=== PATIENT | female | born 1950 | race Caucasian/White ===

== ENCOUNTER 2017-10-23 09:20 | Emergency (ER) | payer MEDICARE, OTHER, SELFPAY ==
[2017-10-23 09:22] VITALS: BP 193/113; PULSE 83; RESP 18; TEMP 36.8; O2SAT 100; BMI 28.2
--- NOTE | 2017-10-23 09:35 | EKG12_ITS ---
Test Reason : DIZZINESS Blood Pressure : / mmHG Vent. Rate : 076 BPM Atrial Rate : 076 BPM P-R Int : 140 ms QRS Dur : 080 ms QT Int : 388 ms P-R-T Axes : 025 021 003 degrees QTc Int : 436 ms Normal sinus rhythm Normal ECG Confirmed by CHETNA RADER MD ([id number]), international editorial producer KECIA VANESSA ([id number]) on 10/25/2017 3:29:24 PM Referred By: RANDELL Confirmed By:CHETNA RADER MD
--- NOTE | 2017-10-23 09:35 | RAD_ITS ---
STUDY: X-RAY CHEST REASON FOR EXAM: Female, 67 years old. Dizziness and lightheadedness. TECHNIQUE: Single AP portable view of the chest. COMPARISON: Prior comparison studies are not available for review at this time. FINDINGS: The lungs are clear and expanded. There is no demonstrated pleural abnormality. Normal size heart. Normal mediastinum and rosa. Normal visualized pulmonary arteries. Normal visualized aortic arch and descending thoracic aorta. There is mild dextroscoliosis of the thoracic spine. Normal visualized ribs, clavicles, and shoulders. There is no demonstrated abnormality of the visualized soft tissue structures of the upper abdomen. RAD/Chest 1 View (Portable) IMPRESSION: No active pulmonary disease. Electronically Signed: Manish Middleton MD at 10:29 EDT Tel , Service support ,
--- NOTE | 2017-10-23 09:36 | CT_ITS ---
STUDY: CTA NECK WITH CONTRAST REASON FOR EXAM: Female, 67 years old. Dizziness, headache and blurred vision. History of TIA. RADIATION DOSAGE (If Supplied By Facility): CTDIvol = ( 26.55 ) mGy, DLP = ( 1360.93 ) mGycm TECHNIQUE: CT angiography with multi-detector data acquisition was performed from the aortic arch to the skull base following intravenous administration of 100 ml of Isovue 300 contrast. MIP images were reconstructed from the axial data set. Post-processing of the angiographic images was performed, with multiplanar reformation and 3D reconstruction. Individualized dose optimization techniques were used for this CT. COMPARISON: None. FINDINGS: AORTIC ARCH: Normal visualized aortic arch. Normal origins of the brachiocephalic, left common carotid, and left subclavian arteries. RIGHT CAROTID ARTERIES: Normal right common carotid artery (CCA). Normal right common carotid bulb. Normal origin of the right internal carotid (ICA) artery without a hemodynamically significant stenosis. Normal visualized cervical portion of the right internal carotid artery. Normal origin of the right external carotid artery (ECA). LEFT CAROTID ARTERIES: Normal left common carotid artery (CCA). Normal left common carotid bulb. Normal origin of the left internal carotid (ICA) artery without a hemodynamically significant stenosis. Normal visualized cervical portion of the left internal carotid artery. Normal origin of the left external carotid artery (ECA). VERTEBRAL ARTERIES: Normal bilateral vertebral arteries. CT/CTA Neck W/WO Contrast IMPRESSION: Normal bilateral cervical carotid and vertebral arteries. Electronically Signed: Manish Middleton MD at 11:53 EDT Tel , Service support ,
--- NOTE | 2017-10-23 09:36 | CT_ITS ---
STUDY: CTA OF THE BRAIN REASON FOR EXAM: Female, 67 years old. Headache, dizziness and blurred vision. History of TIA. RADIATION DOSAGE (If Supplied By Facility): CTDIvol = ( 26.55 ) mGy, DLP = ( 1360.93 ) mGycm TECHNIQUE: CT angiography was performed with a multi-detector CT scanner. Data acquisition was obtained from the skull base through the vertex following intravenous administration of 100 ml of Isovue 370. MIP images were reconstructed from the axial data set. Post-processing of the angiographic images was performed, with multiplanar reformation and 3D reconstruction. Individualized dose optimization techniques were used for this CT. COMPARISON: None. FINDINGS: Normal bilateral petrous carotid arteries. There is mild calcified plaque formation of the right cavernous carotid artery, without a cross-sectional luminal stenosis. Normal left cavernous carotid artery with a normal supraclinoid bifurcation. Normal right A1 segments of the anterior cerebral artery. Normal left A1 segments of the anterior cerebral artery. There is non-visualization of the anterior communicating artery (ACOM). Normal bilateral A2 segments of the anterior cerebral arteries. Normal right M1 and M2 segments of the middle cerebral arteries, with a normal M1 bifurcation. Normal left M1 and M2 segments of the middle cerebral arteries, with a normal M1 bifurcation. There is non-visualization of the right posterior communicating artery (PCOM). Normal left posterior communicating artery (PCOM). Normal bilateral vertebral arteries. Normal basilar artery with a normal basilar bifurcation. The visualized bilateral superior cerebellar (SCA) arteries are normal. There is no demonstrated aneurysm of the [place]. There is no demonstrated abnormality of the visualized brain. CT/CTA Head W/WO Contrast IMPRESSION: No demonstrated flow limiting stenosis. Electronically Signed: Manish Middleton MD at 12:02 EDT Tel , Service support ,
[2017-10-23 09:44] VITALS: PULSE 76; RESP 13; O2SAT 97
[2017-10-23 09:45] LABS: Absolute Lymphocyte Count 1.61 X10^3/ul (0.83-4.51); Absolute Neutrophil Count 5.6 X10^3/uL (2.0-7.7); Basophil# 0.01 X10^3/uL; Basophil% 0.1 % (0-1); Eosinophil# 0.06 X10^3/uL; Eosinophils% 0.8 % (0-5); Hematocrit 45.6 % (37-47); Hemoglobin 15.6 g/dl (12.0-15.0); Lymphocyte # 1.61 X10^3/ul (4.0); Mean Corp Hgb Conc 34.2 g/gl (32-36); Mean Corpuscular Hgb 29.3 pg (27.0-32.0); Mean Corpuscular Volume 85.7 fL (81-99); Mean Platelet Vol. 9.9 fl (6.2-12.0); Monocyte# 0.36 X10^3/uL; Monocyte% 4.7 % (0-10); Neutrophil % 73.3 % (47-70); Platelet Count 247 K/mm3 (150-450); RBC Distribution Width CV 13.2 % (11.6-14.6); RBC Distribution Width SD 41.1 fl (35.1-43.9); Red Blood Count 5.32 M/mm3 (4.2-5.4); White Blood Count 7.7 K/mm3 (4.4-11.0)
[2017-10-23 09:46] LABS: POSITIVE COUNT NO; POSITIVE DIFFERENTIAL NO; POSITIVE MORPHOLOGY NO
[2017-10-23 09:50] LABS: Erythrocyte Sedimentation Rate 4 mm/hr (0-30)
[2017-10-23] MEDS: Meclizine 12.5 MG Tablet 25 MG PO (09:55)
[2017-10-23] MEDS: 0.9% Normal Saline 1,000 ML 150 ML IV (09:55)
[2017-10-23 10:02] LABS: Anion Gap 5 (5-15); BUN 18 mg/dL (7-18); BUN/Creat Ratio 16.8 RATIO (10-20); Calcium,Total 9.1 mg/dL (8.5-10.1); Chloride 109 mmol/L (98-107); Creatinine, Serum 1.07 mg/dL (0.55-1.02); EST Glomerular Filtration Rate 54 mL/min (>60); Est Glom Filt Rate - Afr Amer 66 mL/min (>60); Glucose 98 mg/dL (74-106); Potassium 3.8 mmol/L (3.5-5.1); Sodium Level 141 mmol/L (136-145)
[2017-10-23 10:09] LABS: Bacteria 0 SEEN /hpf (None Seen); Mucous, Urine 0 SEEN /hpf (<or=2+); Red Blood Cells-Urine 0 SEEN /hpf (0-5)
[2017-10-23 10:17] LABS: Color, Urine Yellow (Yellow); Glucose, Dipstick Normal (Normal); Ketone-Dipstick Negative (Negative); Leukocyte Esterase-Dipstick Negative /ul (Negative); Nitrite-Dipstick Negative (Negative); Occult Blood-Urine Negative /ul (Negative); Protein-Dipstick Negative (Negative); Urine Bilirubin Dipstick Negative (Negative); Urine Clarity Clear (Clear); Urine Urobilinogen Normal (Normal)
[2017-10-23 10:30] LABS: Squamous Epithelial Cells - UA 0-5 SEEN /hpf (5-10); White Blood Cells 0-5 SEEN /hpf (0-5)
[2017-10-23 10:41] VITALS: BP 153/91; BP 158/82; BP 160/92; PULSE 71; PULSE 72; PULSE 74
[2017-10-23 11:30] VITALS: BP 163/89; PULSE 73; RESP 11; O2SAT 98
[2017-10-23 12:07] VITALS: BP 163/82; PULSE 76; RESP 14; O2SAT 96
--- NOTE | 2017-10-23 12:25 | ED.VISSUMM ---
- ER Visit Summary Date of Service: 10/23/17 Chief Complaint: [Dizziness] History of Present Illness: The patient is a 67 F [presents to the emergency department with complaint of dizziness that started yesterday. Patient states she woke up with her symptoms yesterday. Patient states that the symptoms of worsened today and she has a spinning sensation at times with certain head positions as well as with laying flat. Patient feels off balance. Patient describes a headache to the top right side of her head as well since yesterday. Patient also gives history of some blurred vision issues for the last 3 or 4 months for which she actually went to an electrician apprentice and was told that everything looked okay and only had the early beginnings of some cataracts. Patient denies any falls or head injuries. Patient denies any recent illness. 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 Cranial nerves II through XII grossly intact. TMs clear. Mucous membranes moist. No adenopathy. Cardiovascular-regular rate and rhythm without murmur or ectopy Lungs-clear to auscultation, chest wall stable without crepitus or subcu emphysema Abdomen-normoactive bowel sounds, soft, nontender, no rebound or rigidity, no peritoneal signs. Neuro ofrz-nmwjmx-oawp and heel to galindo testing within normal limits, negative Romberg, negative pronator drift, fundi benign. Hallpike maneuver performed because patient's symptoms to reproduce however I did not appreciate any nystagmus. Extremities-intact ?4, normal range of motion, normal pulses, atraumatic] Test Results: [EKG obtained on arrival shows sinus rhythm with ventricular rate of [address] segment changes. Chest x-ray showed nothing acute. CBC with differential was normal. Sed rate was normal at 4. Chemistries were normal. Troponin was less than 0.02. Urinalysis was normal. Orthostatics were negative. CTA of the head and neck obtained were normal.] Emergency Department Course and Treatment: [Patient was medicated with Antivert and she had significant symptomatic improvement. Patient was able to ambulate to the bathroom without difficulty. Case was discussed with neurologist on-call Dr. Jarrell Villagran. At this point I do not suspect stroke as the etiology of symptoms. I suspect likely diagnosis of benign positional vertigo.] Patient would prefer to follow-up as an outpatient for further evaluation if symptoms persist and does not want to be admitted. Patient has an appointment with her primary care physician in 2 days. Patient's headache resolved in the emergency department. Follow-up blood pressure now in the 160s systolic over 80s diastolic. Treatment Plan: [Patient will be given a prescription for Antivert. Patient will be given neurology referral.] Disposition: [Discharged home in stable condition. Patient advised to return if increased difficulty with balance or speech. Patient to return if weakness that is focal or condition should worsen in any way.] Impression: [Dizziness-suspect benign positional vertigo] This note was generated with [employer] dictation software. It may contain incorrect words, spelling, and punctuation that were not noted in review of the chart prior to signing ED Disposition - Plan for ED Patient: Chief Complaint: Dizziness Referrals: Jay Curran MD [Primary Care Provider] -
--- NOTE | 2017-10-23 12:29 | ED.DCSUM_ITS ---
- ER Visit Summary Date of Service: 10/23/17 Chief Complaint: [Dizziness] History of Present Illness: The patient is a 67 F [presents to the emergency department with complaint of dizziness that started yesterday. Patient states she woke up with her symptoms yesterday. Patient states that the symptoms of worsened today and she has a spinning sensation at times with certain head positions as well as with laying flat. Patient feels off balance. Patient describes a headache to the top right side of her head as well since yesterday. Patient also gives history of some blurred vision issues for the last 3 or 4 months for which she actually went to an reception interviewer and was told that everything looked okay and only had the early beginnings of some cataracts. Patient denies any falls or head injuries. Patient denies any recent illness. 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 Cranial nerves II through XII grossly intact. TMs clear. Mucous membranes moist. No adenopathy. Cardiovascular-regular rate and rhythm without murmur or ectopy Lungs-clear to auscultation, chest wall stable without crepitus or subcu emphysema Abdomen-normoactive bowel sounds, soft, nontender, no rebound or rigidity, no peritoneal signs. Neuro bvbr-fhesbe-eyty and heel to galindo testing within normal limits, negative Romberg, negative pronator drift, fundi benign. Hallpike maneuver performed because patient's symptoms to reproduce however I did not appreciate any nystagmus. Extremities-intact ?4, normal range of motion, normal pulses, atraumatic] Test Results: [EKG obtained on arrival shows sinus rhythm with ventricular rate of [address] segment changes. Chest x-ray showed nothing acute. CBC with differential was normal. Sed rate was normal at 4. Chemistries were normal. Troponin was less than 0.02. Urinalysis was normal. Orthostatics were negative. CTA of the head and neck obtained were normal.] Emergency Department Course and Treatment: [Patient was medicated with Antivert and she had significant symptomatic improvement. Patient was able to ambulate to the bathroom without difficulty. Case was discussed with neurologist on- call Dr. Jarrell Villagran. At this point I do not suspect stroke as the etiology of symptoms. I suspect likely diagnosis of benign positional vertigo. ] Patient would prefer to follow-up as an outpatient for further evaluation if symptoms persist and does not want to be admitted. Patient has an appointment with her primary care physician in 2 days. Patient's headache resolved in the emergency department. Follow-up blood pressure now in the 160s systolic over 80s diastolic. Treatment Plan: [Patient will be given a prescription for Antivert. Patient will be given neurology referral.] Disposition: [Discharged home in stable condition. Patient advised to return if increased difficulty with balance or speech. Patient to return if weakness that is focal or condition should worsen in any way.] Impression: [Dizziness-suspect benign positional vertigo] This note was generated with [employer] dictation software. It may contain incorrect words, spelling, and punctuation that were not noted in review of the chart prior to signing ED Disposition - Plan for ED Patient: Chief Complaint: Dizziness Referrals: Jay Curran MD [Primary Care Provider] -
--- NOTE | 2017-10-23 12:29 | ED.DEP ---
ED Disposition - Plan for ED Patient: Chief Complaint: Dizziness Instructions: ED BPV Vertigo Prescriptions: Meclizine HCl [Antivert] 25 mg PO 4X/DAY PRN PRN #20 tab PRN Reason: Dizziness Referrals: Jay Curran MD [Primary Care Provider] - Jarrell Villagran MD [STAFF PHYSICIAN] - 3-5 Days
[2017-10-23 12:39] VITALS: BP 163/82; PULSE 76; RESP 10; O2SAT 96
== END 2017-10-23 12:45 | disposition home or self-care (01) ==
PROVIDERS: Emergency Provider Emergency Medicine; Family Provider Family Medicine; PCP Family Medicine
DX: R42 Dizziness and giddiness (principal); E78.00 Pure hypercholesterolemia, unspecified; Z79.899 Other long term (current) drug therapy
CPT/HCPCS: 70496; 70498; 71045; 80048; 81001; 84484; 85025; 85652; 93005; 96360; 96361; 99285; J7030; Q9967; A4216